=== PATIENT | female | born 1955 | race Caucasian/White ===

== ENCOUNTER → 2017-01-25 | Outpatient (CLI) | payer MEDICARE ==
[2015-09-24 18:04] VITALS: BP 113/74
[~2017-01-25] MED LIST: CLON1TAB PO; HYDR200T5 PO; LEVO100T PO; NAPR500T3 PO; PARO40TA61 PO; TRAM50TA PO; [UNRECOGNIZED DRUG - OTHER]
--- NOTE | 2017-01-25 15:00 | RAD ---
Examination: Ultrasound thyroid History: History of multinodular goiter. Comparison: 01/01/2016 Findings: The right lobe of thyroid measures 5.1 x 2.2 x 1.9 cm. The left lobe of thyroid gland measures 4.7 x 1.8 x1.8 cm There is increased vascular flow identified in the right and left lobes of the thyroid gland. There are multiple hyperechoic nodules identified in the right and left lobes of the thyroid gland and in the isthmus with the largest measuring 1.9 cm in the right lobe. Tiny calcification identified in the left lobe of the thyroid gland measuring 3 mm. Impression: 1. Multinodular goiter with diffuse multiple nodules identified in the thyroid gland with the largest measuring 1.9 cm in the right lobe. The nodules may have slightly increased in size compared to prior exam where the largest in the prior exam measured 1.2 cm. 2. Increased vascular flow identified in the right and left lobes of thyroid gland could be due to thyroiditis or multinodular goiter.
== END | disposition home or self-care (01) ==
LOC: US 13:16
PROVIDERS: ATTEND Internal Medicine Endocrinology, Diabetes & Metabolism
DX: E04.2 Nontoxic multinodular goiter (principal)
CPT/HCPCS: 76536

== ENCOUNTER → 2017-01-25 | Outpatient (CLI) | payer MEDICARE ==
[2015-09-24 18:04] VITALS: BP 113/74
--- NOTE | 2017-01-25 15:04 | RAD ---
DATE: 04/23/2015 EXAM: MAMMO ELISEO SCREENING BILATERAL HISTORY: Routine screening, family history of breast cancer COMPARISON: 04/23/2015 This study was interpreted with the benefit of Computerized Aided Detection (CAD). FINDINGS: Breast Density: SCATTERED The breast parenchyma shows scattered fibroglandular densities. Breast parenchyma level B. There are no dominant suspicious masses, suspicious microcalcifications or evidence of architectural distortion. Benign-appearing calcifications identified in the right breast. IMPRESSION: Benign findings BI-RADS CATEGORY: 2 BENIGN FINDING RECOMMENDED FOLLOW-UP: 12M 12 MONTH FOLLOW-UP PQRS compliance statement: Patient information was entered into a reminder system with a target due date 01/25/2018 for the next mammogram. Mammography is a sensitive method for finding small breast cancers, but it does not detect them all and is not a substitute for careful clinical examination. A negative mammogram does not negate a clinically suspicious finding and should not result in delay in biopsying a clinically suspicious abnormality. "Our facility is accredited by the [employer] Mammography Program."
== END | disposition home or self-care (01) ==
LOC: MAMMO 13:20
PROVIDERS: ATTEND Nurse Practitioner Family
DX: Z12.31 Encounter for screening mammogram for malignant neoplasm of breast (principal)
CPT/HCPCS: 77063; G0202; 77067

== ENCOUNTER → 2017-06-07 | Outpatient (CLI) | payer MEDICARE ==
[2015-09-24 18:04] VITALS: BP 113/74
[~2017-06-07] MED LIST changes: -NAPR500T3 PO; +NAPR500T4 PO
--- NOTE | 2017-06-07 14:19 | RAD ---
Renal ultrasound 06/07/2017 Indication: Acute renal failure Comparison study: None Discussion: Ultrasound evaluation of the kidneys was performed. Static images are submitted to PACS. Findings: Right kidney measures 10 cm in length. Mild renal cortical thinning is seen on the right. No hydronephrosis or nephrolithiasis or focal renal lesion is seen on the right. Blood flow 2. The right kidney is unremarkable and color Doppler imaging. Left kidney measures 10.3 cm in length. Similar to contralateral side there is renal cortical thinning on the left. No focal renal lesion is seen on the left. No hydronephrosis or nephrolithiasis seen. Blood flow to the left kidney is grossly unremarkable color Doppler imaging. The bladder is predominantly decompressed limiting evaluation. Bilateral ureteral jets however are seen. Impression: Mild renal cortical thinning bilaterally. Otherwise unremarkable sonographic appearance of the kidneys.
== END | disposition home or self-care (01) ==
LOC: US 12:59
PROVIDERS: ATTEND Internal Medicine Nephrology
DX: N17.8 Other acute kidney failure (principal); N28.89 Other specified disorders of kidney and ureter
CPT/HCPCS: 76770

== ENCOUNTER → 2017-06-15 | Outpatient (CLI) | payer MEDICARE ==
[2015-09-24 18:04] VITALS: BP 113/74
== END | disposition home or self-care (01) ==
LOC: SPEC 20:26
PROVIDERS: ATTEND Internal Medicine Nephrology
DX: N18.3 Chronic kidney disease, stage 3 (moderate) (principal); N17.8 Other acute kidney failure; N11.9 Chronic tubulo-interstitial nephritis, unspecified; E55.9 Vitamin D deficiency, unspecified; R03.0 Elevated blood-pressure reading, without diagnosis of hypertension; F17.200 Nicotine dependence, unspecified, uncomplicated; Z68.31 Body mass index [BMI] 31.0-31.9, adult
CPT/HCPCS: 36415; 82575

== ENCOUNTER → 2018-02-13 | Outpatient (CLI) | payer MEDICARE ==
[2015-09-24 18:04] VITALS: BP 113/74
[~2018-02-13] MED LIST changes: +NAPR-514 PO; -NAPR500T4 PO
--- NOTE | 2018-02-14 07:58 | RAD ---
Lumbar spine, 5 views, 02/13/2018: HISTORY: Low back pain, back spasms The lumbar vertebral heights are well-maintained. A transitional-type vertebra at the lumbosacral junction will be considered to be a partially lumbarized S1 segment. There is severe disc space narrowing, marginal spurring and vacuum disc phenomena evident at L4-5 and L5-S1. There is mild narrowing of the L3-4 disc space. No fracture or dislocation is identified. There are mild degenerative changes involving facet joints bilaterally in the lower lumbar spine. There is no evidence of spondylolysis. IMPRESSION: 1. Severe degenerative disc disease at L4-5 and L5-S1. 2. No acute bony abnormality is detected. Electronically signed by: Martinez Loera MD (02/14/2018 7:55 AM) [facility]
== END | disposition home or self-care (01) ==
LOC: RAD 17:13
PROVIDERS: ATTEND Physician Assistant Medical
DX: M51.37 Other intervertebral disc degeneration, lumbosacral region (principal); M48.07 Spinal stenosis, lumbosacral region; E55.9 Vitamin D deficiency, unspecified; E03.9 Hypothyroidism, unspecified
CPT/HCPCS: 72110

== ENCOUNTER → 2018-03-28 | Outpatient (CLI) | payer MEDICARE ==
[2015-09-24 18:04] VITALS: BP 113/74
--- NOTE | 2018-03-28 16:20 | RAD ---
EXAM: Thyroid sonogram. HISTORY: Thyroid nodules. TECHNIQUE: Sonographic imaging of the thyroid was performed. COMPARISON: 01/25/2017. FINDINGS: The right thyroid lobe measures 5.3 x 2.0 x 1.8 cm. The left thyroid lobe measures 5.1 x 1.9 x 2.0 cm. The isthmus measures 6.1 mm in thickness. The thyroid parenchyma is diffusely heterogeneous and contains multiple nodules. There is a single calcification within the left thyroid lobe measuring 4 mm. the largest measurable nodule is a heterogeneous hypoechoic nodule within the superior right thyroid lobe measuring 2.0 x 1.2 x 1.2 cm. The second largest nodule is a solid slightly hyperechoic nodule within the mid zone of the right thyroid lobe measuring 1.2 x 0.9 x 0.9 cm. IMPRESSION: 1. Diffusely heterogeneous enlarged thyroid. This can be seen as a sequela of thyroiditis. 2. Multiple thyroid nodules, the largest of which measures 2.0 cm within the superior right thyroid lobe. This is not significantly changed compared to the prior study. The second largest nodule measures 1.2 cm within the right thyroid lobe and is also stable in appearance. Electronically signed by: Yolanda Aguirre MD (03/28/2018 4:17 PM) [facility]
== END | disposition home or self-care (01) ==
LOC: US 14:10
PROVIDERS: ATTEND Internal Medicine Endocrinology, Diabetes & Metabolism
DX: E04.2 Nontoxic multinodular goiter (principal); E04.8 Other specified nontoxic goiter; E55.9 Vitamin D deficiency, unspecified; I12.9 Hypertensive chronic kidney disease with stage 1 through stage 4 chronic kidney disease, or unspecified chronic kidney disease; N18.3 Chronic kidney disease, stage 3 (moderate); D63.1 Anemia in chronic kidney disease; E03.9 Hypothyroidism, unspecified; Z90.49 Acquired absence of other specified parts of digestive tract; Z68.28 Body mass index [BMI] 28.0-28.9, adult
CPT/HCPCS: 76536

== ENCOUNTER → 2018-06-21 | Outpatient (CLI) | payer MEDICARE ==
[2015-09-24 18:04] VITALS: BP 113/74
[2018-06-21 15:12] LABS: HEMATOCRIT 37.1 % (36.0-47.0)
[2018-06-21 15:19] LABS: ALBUMIN 3.5 g/dL (3.4-5.0); CALCIUM 8.1 mg/dL (8.5-10.1); CREATININE 1.4 mg/dL (0.6-1.0); GFR 37.7; MAGNESIUM 2.3 mg/dL (1.8-2.4); PHOSPHORUS 3.6 mg/dL (2.6-4.7); POTASSIUM 4.1 mmol/L (3.5-5.1); URIC ACID 6.2 mg/dL (2.6-6.0)
[2018-06-22 03:12] LABS: CALCIUM PTH 8.7 mg/dL (8.7-10.3); CREATININE PTH 1.31 mg/dL (0.57-1.00); MICRO CREAT RATIO 4.1 mg/g creat (0.0-30.0); MICROALB RD UR 3.1 ug/mL (Not Estab.); PTH INTACT 137 pg/mL (15-65)
== END | disposition home or self-care (01) ==
LOC: LAB 13:33
PROVIDERS: ATTEND Nurse Practitioner Family
DX: I12.9 Hypertensive chronic kidney disease with stage 1 through stage 4 chronic kidney disease, or unspecified chronic kidney disease (principal); N18.3 Chronic kidney disease, stage 3 (moderate); N11.9 Chronic tubulo-interstitial nephritis, unspecified; D63.1 Anemia in chronic kidney disease; N25.81 Secondary hyperparathyroidism of renal origin; E55.9 Vitamin D deficiency, unspecified; Z68.30 Body mass index [BMI] 30.0-30.9, adult
CPT/HCPCS: 36415; 80069; 82043; 82570; 83735; 83970; 84156; 84550; 85014; 85018

== ENCOUNTER → 2018-06-21 | Outpatient (CLI) | payer MEDICARE ==
[2015-09-24 18:04] VITALS: BP 113/74
--- NOTE | 2018-06-21 15:14 | RAD ---
DATE: 06/21/2018 EXAM: MAMMO ELISEO SCREENING BILATERAL HISTORY: Routine screening COMPARISON: 04/23/2015, 01/25/2017 screen mammographic exams This study was interpreted with the benefit of Computerized Aided Detection (CAD). Breast Density: SCATTERED The breast parenchyma shows scattered fibroglandular densities. Breast parenchyma level B. FINDINGS: Parenchymal distribution is stable. Axillary lymph nodes are benign in appearance. Benign-appearing calcifications are present. No distortion. No masses. IMPRESSION: Normal BI-RADS CATEGORY: 2 BENIGN FINDING(S) RECOMMENDED FOLLOW-UP: 12M 12 MONTH FOLLOW-UP PQRS compliance statement: Patient information was entered into a reminder system with a target due date in one year for the next mammogram. Mammography is a sensitive method for finding small breast cancers, but it does not detect them all and is not a substitute for careful clinical examination. A negative mammogram does not negate a clinically suspicious finding and should not result in delay in biopsying a clinically suspicious abnormality. "Our facility is accredited by the [employer] Mammography Program."
== END | disposition home or self-care (01) ==
LOC: MAMMO 13:45
PROVIDERS: ATTEND Physician Assistant Medical
DX: Z12.31 Encounter for screening mammogram for malignant neoplasm of breast (principal)
CPT/HCPCS: 77063; 77067

== ENCOUNTER → 2019-01-19 | Outpatient (CLI) | payer MEDICARE ==
[2015-09-24 18:04] VITALS: BP 113/74
[2019-01-19 15:27] LABS: HEMATOCRIT 38.6 % (36.0-47.0); HEMOGLOBIN 12.5 g/dL (12.0-15.5)
[2019-01-19 15:32] LABS: BILIRUBIN,URINE NEG (NEG); CLARITY,URINE HAZY; COLOR,URINE YELLOW; GLUCOSE,URINE NEG (NEG); NITRITE,URINE NEG (NEG); UROBILINOGEN,URINE 0.2 mg/dL (0.2 mg/dL)
[2019-01-19 15:33] LABS: BACTERIA,URINE FEW /HPF (0-FEW); HYALINE CASTS, URINE OCC /HPF; RBC,URINE OCC /HPF (0-2); SQUAMOUS EPITHELIAL CELL,UR OCC /LPF
[2019-01-19 15:34] LABS: ALBUMIN 3.8 g/dL (3.4-5.0); CALCIUM 9.1 mg/dL (8.5-10.1); CREATININE 1.5 mg/dL (0.6-1.0); GFR 34.9; PHOSPHORUS 3.5 mg/dL (2.6-4.7); URIC ACID 6.5 mg/dL (2.6-6.0)
[2019-01-20 04:06] LABS: CALCIUM PTH 9.2 mg/dL (8.7-10.3); CREATININE PTH 1.43 mg/dL (0.57-1.00); MICRO CREAT RATIO 14.1 mg/g creat (0.0-30.0); MICROALB RD UR 26.4 ug/mL (Not Estab.); PTH INTACT 65 pg/mL (15-65)
== END | disposition home or self-care (01) ==
LOC: LAB 14:27
PROVIDERS: ATTEND Internal Medicine Nephrology
DX: N18.3 Chronic kidney disease, stage 3 (moderate) (principal); N25.81 Secondary hyperparathyroidism of renal origin; D17.9 Benign lipomatous neoplasm, unspecified; I70.1 Atherosclerosis of renal artery; N11.9 Chronic tubulo-interstitial nephritis, unspecified; N26.9 Renal sclerosis, unspecified; D63.1 Anemia in chronic kidney disease; E83.51 Hypocalcemia; Z68.31 Body mass index [BMI] 31.0-31.9, adult
CPT/HCPCS: 36415; 80069; 81001; 82043; 82570; 82607; 82728; 83540; 83550; 83735; 83970; 84550; 85014; 85018; 87086

== ENCOUNTER → 2019-01-19 | Outpatient (CLI) | payer MEDICARE ==
[2015-09-24 18:04] VITALS: BP 113/74
--- NOTE | 2019-01-19 14:51 | RAD ---
Right knee, 3 views, 01/19/2019: HISTORY: Knee pain There is mild spurring medially at the knee joint. No fracture or dislocation is identified. No significant joint effusion is seen. IMPRESSION: No acute right knee abnormality is detected. Electronically signed by: Martinez Loera MD (01/19/2019 2:48 PM) [facility]
== END | disposition home or self-care (01) ==
LOC: RAD 14:18
PROVIDERS: ATTEND Anesthesiology Pain Medicine
DX: M76.891 Other specified enthesopathies of right lower limb, excluding foot (principal)
CPT/HCPCS: 73562

== ENCOUNTER → 2019-02-22 | Outpatient (CLI) | payer MEDICARE ==
[2015-09-24 18:04] VITALS: BP 113/74
--- NOTE | 2019-02-22 14:34 | RAD ---
US SOFT TISSUE HEAD AND NECK CLINICAL INDICATION: Multinodular goiter PROCEDURE: Transverse and longitudinal grayscale and color Doppler images of the thyroid were obtained. COMPARISON: Previous exam from 03/28/2018. FINDINGS: Right: The right thyroid lobe measures 5.6 x 2.1 x 2.0 cm. Isthmus: Measures 8 mm in thickness and is mildly thickened. Left: The left thyroid lobe measures 4.3 x 1.5 by The thyroid gland is heterogenous with numerous nodules. IMPRESSION: Diffusely heterogenous bilateral thyroid lobes with numerous nodules. Overall the appearance is similar to previous exam. Electronically signed by: Karthikeyan Amador DO (02/22/2019 2:31 PM) [facility]
== END | disposition home or self-care (01) ==
LOC: US 12:55
PROVIDERS: ATTEND Internal Medicine Endocrinology, Diabetes & Metabolism
DX: E04.2 Nontoxic multinodular goiter (principal)
CPT/HCPCS: 76536

== ENCOUNTER → 2019-05-02 | Outpatient (CLI) | payer MEDICARE ==
[2015-09-24 18:04] VITALS: BP 113/74
== END | disposition home or self-care (01) ==
LOC: LAB 14:11
PROVIDERS: ATTEND Internal Medicine Endocrinology, Diabetes & Metabolism
DX: E06.3 Autoimmune thyroiditis (principal); E04.2 Nontoxic multinodular goiter
CPT/HCPCS: 84439

== ENCOUNTER → 2019-05-25 | Outpatient (CLI) | payer MEDICARE ==
[2015-09-24 18:04] VITALS: BP 113/74
== END | disposition home or self-care (01) ==
LOC: LAB 14:17
PROVIDERS: ATTEND Internal Medicine Endocrinology, Diabetes & Metabolism
DX: E03.8 Other specified hypothyroidism (principal); E06.3 Autoimmune thyroiditis
CPT/HCPCS: 84443

== ENCOUNTER → 2019-08-07 | Outpatient (CLI) | payer MEDICARE ==
[2015-09-24 18:04] VITALS: BP 113/74
--- NOTE | 2019-08-07 17:12 | RAD ---
DATE: 08/07/2019 EXAM: MAMMO ELISEO SCREENING BILATERAL HISTORY: Routine screening COMPARISON: 04/23/2015 01/25/2017, 06/21/2018 mammographic exams This study was interpreted with the benefit of Computerized Aided Detection (CAD). Breast Density: SCATTERED The breast parenchyma shows scattered fibroglandular densities. Breast parenchyma level B. FINDINGS: No suspicious calcification, mass, or distortion. IMPRESSION: Stable BI-RADS CATEGORY: 1 NEGATIVE RECOMMENDED FOLLOW-UP: 12M 12 MONTH FOLLOW-UP PQRS compliance statement: Patient information was entered into a reminder system with a target due date for the next mammogram. Mammography is a sensitive method for finding small breast cancers, but it does not detect them all and is not a substitute for careful clinical examination. A negative mammogram does not negate a clinically suspicious finding and should not result in delay in biopsying a clinically suspicious abnormality. "Our facility is accredited by the [employer] Mammography Program."
== END | disposition home or self-care (01) ==
LOC: MAMMO 14:35
PROVIDERS: ATTEND Physician Assistant Medical
DX: Z12.31 Encounter for screening mammogram for malignant neoplasm of breast (principal)
CPT/HCPCS: 77063; 77067

== ENCOUNTER → 2019-08-07 | Outpatient (CLI) | payer MEDICARE ==
[2015-09-24 18:04] VITALS: BP 113/74
[2019-08-07 15:40] LABS: ALBUMIN 3.7 g/dL (3.4-5.0); CALCIUM 8.8 mg/dL (8.5-10.1); CREATININE 1.4 mg/dL (0.6-1.0); GFR 37.6; PHOSPHORUS 3.7 mg/dL (2.6-4.7); POTASSIUM 4.3 mmol/L (3.5-5.1); URIC ACID 5.8 mg/dL (2.6-6.0)
[2019-08-07 15:44] LABS: HEMATOCRIT 37.9 % (36.0-47.0); HEMOGLOBIN 12.2 g/dL (12.0-15.5)
[2019-08-07 16:14] LABS: BACTERIA,URINE FEW /HPF (0-FEW); BILIRUBIN,URINE NEG (NEG); CLARITY,URINE HAZY; COLOR,URINE YELLOW; GLUCOSE,URINE NEG (NEG); NITRITE,URINE NEG (NEG); RBC,URINE 0 /HPF (0-2); SQUAMOUS EPITHELIAL CELL,UR OCC /LPF; UROBILINOGEN,URINE 0.2 mg/dL (0.2 mg/dL)
[2019-08-10 12:07] LABS: CALCIUM PTH 9.5 mg/dL (8.7-10.3); CREATININE PTH 1.33 mg/dL (0.57-1.00); PTH INTACT 69 pg/mL (15-65)
== END | disposition home or self-care (01) ==
LOC: LAB 14:27
PROVIDERS: ATTEND Nurse Practitioner Family
DX: I70.1 Atherosclerosis of renal artery (principal); N11.9 Chronic tubulo-interstitial nephritis, unspecified; N26.9 Renal sclerosis, unspecified; N18.3 Chronic kidney disease, stage 3 (moderate); D63.1 Anemia in chronic kidney disease; E83.51 Hypocalcemia; N25.81 Secondary hyperparathyroidism of renal origin; D17.9 Benign lipomatous neoplasm, unspecified; R60.0 Localized edema; Z68.31 Body mass index [BMI] 31.0-31.9, adult
CPT/HCPCS: 36415; 80069; 81001; 83735; 83970; 84550; 85014; 85018; 87086

== ENCOUNTER → 2019-09-28 | Outpatient (CLI) | payer MEDICARE ==
[2015-09-24 18:04] VITALS: BP 113/74
[2019-09-28 15:15] LABS: HEMATOCRIT 37.8 % (36.0-47.0)
[2019-09-28 15:23] LABS: ALBUMIN 3.6 g/dL (3.4-5.0); CALCIUM 8.7 mg/dL (8.5-10.1); CREATININE 1.4 mg/dL (0.6-1.0); GFR 37.6; MAGNESIUM 1.8 mg/dL (1.8-2.4); PHOSPHORUS 3.4 mg/dL (2.6-4.7); POTASSIUM 4.3 mmol/L (3.5-5.1); URIC ACID 6.5 mg/dL (2.6-6.0)
[2019-09-28 15:44] LABS: AMORPHOUS SEDIMENT,UR PRESENT /HPF; BACTERIA,URINE MANY /HPF (0-FEW); BILIRUBIN,URINE NEG (NEG); CLARITY,URINE HAZY; COLOR,URINE YELLOW; GLUCOSE,URINE NEG (NEG); NITRITE,URINE POS (NEG); SQUAMOUS EPITHELIAL CELL,UR FEW /LPF; UROBILINOGEN,URINE 0.2 mg/dL (0.2 mg/dL)
[2019-09-29 15:07] LABS: CALCIUM PTH 9.4 mg/dL (8.7-10.3); CREATININE PTH 1.38 mg/dL (0.57-1.00); PTH INTACT 56 pg/mL (15-65)
== END | disposition home or self-care (01) ==
LOC: LAB 14:10
PROVIDERS: ATTEND Nurse Practitioner Family
DX: I70.1 Atherosclerosis of renal artery (principal); N11.9 Chronic tubulo-interstitial nephritis, unspecified; N26.9 Renal sclerosis, unspecified; N18.3 Chronic kidney disease, stage 3 (moderate); D63.1 Anemia in chronic kidney disease; E83.51 Hypocalcemia; N25.81 Secondary hyperparathyroidism of renal origin; D17.9 Benign lipomatous neoplasm, unspecified; R60.0 Localized edema; Z68.31 Body mass index [BMI] 31.0-31.9, adult
CPT/HCPCS: 36415; 80069; 81001; 83735; 83970; 84550; 85014; 85018; 87086

== ENCOUNTER → 2020-03-27 | Outpatient (CLI) | payer MEDICARE ==
[2015-09-24 18:04] VITALS: BP 113/74
--- NOTE | 2020-03-27 17:29 | RAD ---
EXAM: THYROID ULTRASOUND. HISTORY: Multinodular goiter. COMPARISON: 02/22/2019. FINDINGS: Sonographic evaluation of the thyroid gland was performed and evaluated using ACR TI-RADS criteria. Right lobe: The right lobe measures 5.3 x 2.2 x 2.0 cm. The parenchyma is diffusely replaced by heterogeneous hyperechoic and hypoechoic solid nodules. A previously noted coarse calcification on the right was better seen previously. Left lobe: The left lobe measures 4.6 x 2.1 x 1.5 cm. The parenchyma is diffusely replaced by heterogeneous hyperechoic and hypoechoic solid nodules. Isthmus: The isthmus measures 10 mm. IMPRESSION/RECOMMENDATION: 1. The thyroid parenchyma is diffusely replaced by innumerable mostly hyperechoic nodules. These appear stable and benignity is favored in this setting. Electronically signed by: Eulalia Serna MD (03/27/2020 5:26 PM) [id number]
[2020-03-28 14:27] LABS: FREE T4 1.46 ng/dL (0.76-1.46); THYROID STIM HORMONE (TSH) 0.301 uIU/mL (0.358-3.740)
== END | disposition home or self-care (01) ==
LOC: US 12:48
PROVIDERS: ATTEND Internal Medicine Endocrinology, Diabetes & Metabolism
DX: E04.2 Nontoxic multinodular goiter (principal); E06.3 Autoimmune thyroiditis; E03.8 Other specified hypothyroidism
CPT/HCPCS: 76536; 84439; 84443

== ENCOUNTER → 2020-05-05 | Emergency (ER) | payer MEDICARE ==
[~2020-05-05] VITALS: Ht 170.2 cm; Wt 93.6 kg
[~2020-05-05] MED LIST changes: +ASPIRIN CHEWABLE 81 MG TABLET. PO ONE
[2020-05-05 17:00] VITALS: BP 119/75
--- NOTE | 2020-05-05 17:53 | EKG ---
[address] [address] Test Date: 2020-05-05 Test Time: 17:21:48 Pat Name: LESLEY JO Department: Room: Gender: F Incident Response Engineer: : [id number] Requested By: ILYA DESAI Order Number: [id number] Reading MD: Vincent Gracia MD Measurements Intervals [place] Rate: 68 P: 24 SC: 172 QRS: -6 QRSD: 78 T: 34 QT: 418 QTc: 449 Interpretive Statements SINUS RHYTHM Electronically Signed On 05-06-2020 12:40:42 CDT by Vincent Gracia MD
--- NOTE | 2020-05-05 17:56 | PHYS DOC ---
Past History Past Medical History: Arthritis, Hypothyroid, Renal Disease, Renal Failure, Other Past Surgical History: Cholecystectomy, Hysterectomy, Tonsillectomy Alcohol Use: None Drug Use: None General Adult EDM: Chief Complaint: CHEST PAIN HPI: HPI: 65-year-old female presents with chest pain. The pain started while she was lyi ng in bed this morning. It has been pretty consistent all day. It is moderate in intensity. She describes it as a tightness. The patient recently had some wisdom teeth extracted and is on pain medication. She did not take any pain medication today until about an hour prior to arrival. The patient does not have a cardiac history. She denies shortness of breath or diaphoresis. She had a COVID test earlier today but the results are not back. Patient has been really tired all day but she assumes is due to the discomfort from her dental surgery. She has not had a stress test in several years. She has never had a cardiac cath. She denies fever or chills. She has no other complaints at this time. Review of Systems: Review of Systems: Constitutional: Fatigue. Denies fever or chills Eyes: Denies change in visual acuity HENT: Denies nasal congestion or sore throat Respiratory: Denies cough or shortness of breath Cardiovascular: Chest pain GI: Denies abdominal pain, nausea, vomiting, bloody stools or diarrhea : Denies dysuria Musculoskeletal: Denies back pain or joint pain Integument: Denies rash Neurologic: Denies headache, focal weakness or sensory changes Endocrine: Denies polyuria or polydipsia Lymphatic: Denies swollen glands Psychiatric: Denies depression or anxiety Heart Score: HEART Score for Chest Pain: HEART Score for Chest Pain Response (Comments) Value History Slighlty/Non-Suspicious 0 ECG Normal 0 Age > 65 2 Risk Factors 1 or 2 Risk Factors 1 Troponin < Normal Limit 0 Total 3 Risk Factors: Risk Factors: DM, Current or recent (<one month) smoker, HTN, HLP, family hi story of CAD, obesity. Risk Scores: Score 0 - 3: 2.5% MACE over next 6 weeks - Discharge Home Score 4 - 6: 20.3% MACE over next 6 weeks - Admit for Clinical Observation Score 7 - 10: 72.7% MACE over next 6 weeks - Early Invasive Strategies Current Medications: Current Meds: Current Medications Medications (Trade) Dose Ordered Sig/Michelle Start Time Stop Time Status Last Admin Dose Admin Aspirin (Aspirin Chewable) 324 mg 1X ONCE 05/05/20 17:45 05/05/20 17:48 DC Allergies: Allergies: Allergies Coded Allergies Type Severity Reaction Last Updated Verified hydroxychloroquine Adverse Reaction Mild RASH 09/24/15 Yes Physical Exam: PE: Constitutional: Well developed, well nourished, no acute distress, non-toxic appearance. [] HENT: Normocephalic, atraumatic, bilateral external ears normal, oropharynx moist, no oral exudates, nose normal. [] Eyes: PERRLA, EOMI, conjunctiva normal, no discharge. [] Neck: Normal range of motion, no tenderness, supple, no stridor. [] Cardiovascular: Heart rate regular rhythm, no murmur [] Lungs & Thorax: Bilateral breath sounds clear to auscultation [] Abdomen: Bowel sounds normal, soft, no tenderness, no masses, no pulsatile masses. [] Skin: Warm, dry, no erythema, no rash. [] Back: No tenderness, no CVA tenderness. [] Extremities: No tenderness, no cyanosis, no clubbing, ROM intact, no edema. [] Neurologic: Alert and oriented X 3, normal motor function, normal sensory function, no focal deficits noted. [] Psychologic: Affect normal, judgement normal, mood normal. [] Current Patient Data: Vital Signs: Vital Signs Date Time Temp Pulse Resp B/P (MAP) Pulse Ox O2 Delivery O2 Flow Rate FiO2 05/05/20 17:00 98.1 70 18 119/75 (90) 96 Room Air EKG: EKG: Sinus rhythm, rate 68, leftward axis, no ST elevations or depressions. [] Radiology/Procedures: Radiology/Procedures: [] Course & Med Decision Making: Course & Med Decision Making Pertinent Labs and Imaging studies reviewed. (See chart for details) The patient's labs are unremarkable. Her troponin is negative. She does have an elevated creatinine, but this is consistent with previous labs. Chest x-ray is negative for acute findings. Patient's heart score is a 3. This does not appear to be cardiopulmonary in nature. I believe the patient can be discharged at this time. She will follow-up with her PCP. [] Carlos A Disclaimer: Carlos A Disclaimer: This electronic medical record was generated, in whole or in part, using a voice recognition dictation system. Departure Departure: Impression: Primary Impression: Chest pain Qualified Codes: R07.2 - Precordial pain Disposition: 01 HOME/RESIDENCE PRIOR TO ADM Condition: STABLE Referrals: DENISA SAXENA (PCP) Patient Instructions: Chest Pain (Nonspecific), [id number] Justification of Admission: Justification of Admission: Justification of Admission Dx: N/A ILYA DESAI DO May 05, 2020 17:56
[2020-05-05 18:04] LABS: BASO % 1 % (0-3); EOS # 0.1 x10^3/uL (0.0-0.7); EOS % 2 % (0-3); HEMATOCRIT 39.3 % (36.0-47.0); HEMOGLOBIN 12.8 g/dL (12.0-15.5); LYMPH # 1.6 x10^3/uL (1.0-4.8); LYMPH % 30 % (24-48); MEAN CORPUSCULAR HEMOGLOBIN 30 pg (25-35); MEAN CORPUSCULAR HGB CONC 33 g/dL (31-37); MEAN CORPUSCULAR VOLUME 91 fL (79-100); MONO # 0.6 x10^3/uL (0.0-1.1); MONO % 11 % (0-9); NEUT # 3.1 x10^3uL (1.8-7.7); NEUT % 57 % (31-73); PLATELET COUNT 269 x10^3/uL (140-400); RED BLOOD COUNT 4.31 x10^6/uL (3.50-5.40); WHITE BLOOD COUNT 5.4 x10^3/uL (4.0-11.0)
[2020-05-05 18:06] LABS: CALCIUM 8.7 mg/dL (8.5-10.1); CREATININE 1.6 mg/dL (0.6-1.0); GFR 32.2; POTASSIUM 3.8 mmol/L (3.5-5.1)
[2020-05-05 18:11] LABS: ALBUMIN 3.4 g/dL (3.4-5.0); ALBUMIN/GLOBULIN RATIO 0.9 (1.0-1.7); TOTAL BILIRUBIN 0.4 mg/dL (0.2-1.0)
--- NOTE | 2020-05-05 18:30 | RAD ---
INDICATION: Reason: CHEST PAIN / Spl. Instructions: / History: COMPARISON: February 2018 FINDINGS: Single view of chest obtained. Cardiac silhouette is similar to prior with some tortuosity of the aortic contour again seen. No definite new region of focal airspace consolidation or pulmonary edema. IMPRESSION: * No focal airspace consolidation. Electronically signed by: Ben Haley MD (05/05/2020 6:27 PM) [id number]
== END | disposition home or self-care (01) ==
LOC: ER 16:56
DX: R07.2 Precordial pain (principal); M19.90 Unspecified osteoarthritis, unspecified site; E03.9 Hypothyroidism, unspecified; N19 Unspecified kidney failure; Z88.8 Allergy status to other drugs, medicaments and biological substances
CPT/HCPCS: 36415; 71045; 80053; 84484; 85025; 93005; 99285

== ENCOUNTER 2020-05-31 14:08 | Emergency (ER) | payer MEDICARE ==
[~2020-05-31] VITALS: Ht 170.2 cm; Wt 82.0 kg
[~2020-05-31 14:08] MED LIST changes: -ASPIRIN CHEWABLE 81 MG TABLET. PO ONE
[2020-05-31 14:20] VITALS: BP 119/16
[2020-05-31] MEDS ORDERED: AMOX1TAB61 PO (14:50)
--- NOTE | 2020-05-31 14:50 | PHYS DOC ---
Past History Past Medical History: Arthritis, Hypothyroid, Renal Disease, Renal Failure, Other Past Surgical History: Cholecystectomy, Hysterectomy, Tonsillectomy Alcohol Use: None Drug Use: None Adult General Chief Complaint Chief Complaint: ANIMAL BITE HPI HPI Patient is a 65-year-old female who presents for cat bite complications. Cat bite occurred yesterday. Cat is known to patient, patient aware of all vaccination history, no rabies etc. Patient deals with animals frequently and tried to provide self-care for herself at home consisting of warm soaks, hydrogen peroxide scrubs, and as needed pain control. Patient outlined initial area of erythema on left hand but this increased in size with soft tissue swelling prompting her to seek care at our ER for evaluation. She has not had any fever or streaking, no crepitus, no changes in motor or sensory sensation in left upper extremity Review of Systems Review of Systems Fourteen body systems of review of systems have been reviewed. See HPI for pertinent positives and negative responses, other alanis all other systems are negative, non-pertinent or non-contributory Allergies Allergies Allergies Coded Allergies Type Severity Reaction Last Updated Verified hydroxychloroquine Adverse Reaction Mild RASH 05/31/20 Yes Physical Exam Physical Exam Constitutional: Well developed, well nourished, no acute distress, non-toxic appearance. HENT: Normocephalic, atraumatic, bilateral external ears normal, oropharynx moist, no oral exudates, nose normal. Eyes: PERRLA, EOMI, conjunctiva normal, no discharge. Neck: Normal range of motion, no tenderness, supple, no stridor. Cardiovascular: Heart rate regular, sinus rhythm, no murmurs rubs or gallops Lungs & Thorax: Bilateral breath sounds clear to auscultation Abdomen: Bowel sounds normal, soft, no tenderness, no masses, no pulsatile masses. Nonsurgical abdomen, no peritoneal signs Skin: Warm, dry, no rash. Soft tissue edema and erythema over second and third digit of left hand over primary inoculation site on second knuckle. Erythema has increased with diameter greater than 4 cm from bite suraj, no crepitus or streaking at present, no subcutaneous fluid collection or mobile masses or retained foreign bodies Back: No tenderness, no CVA tenderness. Extremities: No tenderness, no cyanosis, no clubbing, ROM intact. Neurologic: Alert and oriented X 3, medial ulnar and dorsal nerves of left upper extremity intact, normal motor & sensory function, no focal deficits noted. Psychologic: Affect normal, judgement normal, mood normal. Current Patient Data Vital Signs Vital Signs Date Time Temp Pulse Resp B/P (MAP) Pulse Ox O2 Delivery O2 Flow Rate FiO2 05/31/20 14:20 97.7 72 16 119/16 (50) 98 EKG EKG [] Radiology/Procedures Radiology/Procedures [] Heart Score Risk Factors: Risk Factors: DM, Current or recent (<one month) smoker, HTN, HLP, family history of CAD, obesity. Risk Scores: Risk Factors: DM, Current or recent (<one month) smoker, HTN, HLP, family history of CAD, obesity. Course & Med Decision Making Course & Med Decision Making Pertinent Labs and Imaging studies reviewed. (See chart for details) Discussed most likely diagnosis of complicated cat bite Discussed need for antibiotic use, I advised patient on likely course of recovery involving Augmentin use and continued wound care. I did disclose this might be an acute presentation more concerning pathology and if her condition continues to worsen there might be a role for IV antibiotics and potential admission. Strict return precautions were discussed with patient with good understanding, all questions and concerns addressed prior to ER departure home in stable condition with Augmentin prescription and extremely close follow-up with primary care physician in upcoming 48 to 72 hours for repeat examination Dragon Disclaimer Dragon Disclaimer This electronic medical record was generated, in whole or in part, using a voice recognition dictation system. Departure Departure: Impression: Primary Impression: Cat bite of hand Disposition: 01 DC HOME SELF CARE/HOMELESS Condition: STABLE Referrals: DENISA ASXENA (PCP) Patient Instructions: Amoxicillin; Clavulanic Acid tablets, Animal Bite Additional Instructions: As discussed prior to ER departure, please call your primary care physician first thing Tuesday morning to schedule follow-up in wound examination Please take prescribed antibiotics as indicated to completion As indicated, you are at high risk for worsened disease potentially requiring IV antibiotics. If any redness, streaking, fever or other concerning signs or symptoms present prior to outpatient follow-up please do not hesitate to come back for repeat evaluation Is a pleasure to take care of you this evening and I wish you a speedy recovery Scripts Amoxicillin/Potassium Clav (AUGMENTIN 875-125 TABLET) 1 Each Tablet 1 TAB PO BID for CAT BITE for 7 Days, #13 TAB 0 Refills Prov: IZABEL VARGAS DO 05/31/20 IZABEL VARGAS DO May 31, 2020 14:50
[2020-05-31] MEDS ORDERED: AMOXICILLIN/K CLAV 875/125MG TABLET. PO ONE (15:00)
== END 2020-05-31 15:05 | disposition home or self-care (01) ==
LOC: ER 14:08
DX: S60.572A Other superficial bite of hand of left hand, initial encounter (principal); M19.90 Unspecified osteoarthritis, unspecified site; E03.9 Hypothyroidism, unspecified; N18.9 Chronic kidney disease, unspecified; Z90.49 Acquired absence of other specified parts of digestive tract; Z90.710 Acquired absence of both cervix and uterus; Z90.89 Acquired absence of other organs; Z98.890 Other specified postprocedural states; W55.01XA Bitten by cat, initial encounter; Y93.89 Activity, other specified; Y92.89 Other specified places as the place of occurrence of the external cause; Y99.8 Other external cause status
CPT/HCPCS: 99283

== ENCOUNTER → 2020-09-12 | Outpatient (CLI) | payer MEDICARE ==
[~2020-09-12] MED LIST changes: +AMOX1TAB61 PO
--- NOTE | 2020-09-12 17:34 | RAD ---
XR HIP (WITH OR WITHOUT PELVIS) 1 VIEW 09/12/2020 10:33 AM INDICATION: Bilateral hip pain COMPARISON: None available. TECHNIQUE: AP view the pelvis and 2 dedicated views of each hip are provided. FINDINGS/ IMPRESSION: There is no acute fracture or dislocation. Joint spaces are maintained. Bone mineralization is within normal limits. Regional soft tissues are within normal limits. There is no soft tissue gas or osseou s erosion. No radiopaque foreign body. Moderate degenerative disc disease identified at L4-L5 with le ft lateral listhesis of L4 on L5. Electronically signed by: Macie Adams MD (09/12/2020 5:31 PM) [email or web address]
== END ==
LOC: RAD 10:14
PROVIDERS: ATTEND Physician Assistant
DX: M25.551 Pain in right hip (principal); M25.552 Pain in left hip
CPT/HCPCS: 73521

== ENCOUNTER → 2020-09-12 | Outpatient (CLI) | payer MEDICARE ==
--- NOTE | 2020-09-15 10:19 | RAD ---
DATE: 09/12/2020 10:56 AM EXAM: MAMMO ELISEO SCREENING BILATERAL HISTORY: Screening COMPARISON: 08/07/2019 Bilateral CC and MLO views of the breasts were performed. Bilateral breast tomosynthesis was performed in CC and MLO projections. This study was interpreted with the benefit of Computerized Aided Detection (CAD). FINDINGS: Breast Density: FATTY The Breast Parenchyma is primarily fatty replaced. Breast parenchyma level density A. No suspicious masses, microcalcifications or architectural distortion is present to suggest malignancy in either breast. The visualized axillae are unremarkable. IMPRESSION: No mammographic evidence of malignancy. BI-RADS CATEGORY: 1 NEGATIVE RECOMMENDED FOLLOW-UP: 12M 12 MONTH FOLLOW-UP Annual screening mammography is recommended, unless clinically indicated sooner based on symptoms or change in physical exam. PQRS compliance statement: Patient information was entered into a reminder system with a target due date for the next mammogram. Mammography is a sensitive method for finding small breast cancers, but it does not detect them all and is not a substitute for careful clinical examination. A negative mammogram does not negate a clinically suspicious finding and should not result in delay in biopsying a clinically suspicious abnormality. "Our facility is accredited by the [employer] Mammography Program."
== END ==
LOC: MAMMO 10:35
PROVIDERS: ATTEND Physician Assistant Medical
DX: Z12.31 Encounter for screening mammogram for malignant neoplasm of breast (principal)
CPT/HCPCS: 77063; 77067

== ENCOUNTER → 2021-01-22 | Outpatient (CLI) | payer MEDICARE ==
--- NOTE | 2021-01-22 15:27 | RAD ---
US THYROID History: Reason: CHRONIC THYROIDITIS / Spl. Instructions: / History: Comparison: March 27, 2020 Technique: Multiple grayscale and color Doppler images of the thyroid gland were obtained. Findings: Right thyroid lobe: 4.9 x 2.2 x 2.4 cm. Heterogeneous echotexture. Increased vascularity. Left thyroid lobe: 4.7 x 1.7 x 1.9 cm. Heterogeneous echotexture. Increased vascularity Isthmus: 1.0 cm. Diffuse heterogeneous appearance of the thyroid with innumerable hyperechoic nodules, overall similar compared to prior. No calcification. IMPRESSION: 1. Unchanged diffusely heterogeneous nodular hypervascular thyroid, compatible with known thyroiditi s. Electronically signed by: Jason Saavedra DO (01/22/2021 3:25 PM) [id number]
== END ==
LOC: US 09:37
PROVIDERS: ATTEND Internal Medicine Endocrinology, Diabetes & Metabolism
DX: E06.5 Other chronic thyroiditis (principal); E06.3 Autoimmune thyroiditis; E04.1 Nontoxic single thyroid nodule
CPT/HCPCS: 76536

== ENCOUNTER → 2021-04-30 | Outpatient (CLI) | payer MEDICARE ==
[2021-04-30 15:07] LABS: HEMATOCRIT 40.9 % (36.0-47.0); HEMOGLOBIN 13.4 g/dL (12.0-15.5)
[2021-04-30 15:19] LABS: ALBUMIN 3.5 g/dL (3.4-5.0); CALCIUM 8.5 mg/dL (8.5-10.1); CREATININE 1.3 mg/dL (0.6-1.0); GFR 40.7; POTASSIUM 3.7 mmol/L (3.5-5.1)
[2021-05-01 12:07] LABS: PTH INTACT 59 pg/mL (15-65)
== END ==
LOC: LAB 14:12
PROVIDERS: ATTEND Nurse Practitioner Adult Health
DX: I70.1 Atherosclerosis of renal artery (principal); N11.9 Chronic tubulo-interstitial nephritis, unspecified; N26.9 Renal sclerosis, unspecified; N18.32 Chronic kidney disease, stage 3b; D63.1 Anemia in chronic kidney disease; E83.51 Hypocalcemia; N25.81 Secondary hyperparathyroidism of renal origin; D17.9 Benign lipomatous neoplasm, unspecified; R60.0 Localized edema; Z68.34 Body mass index [BMI] 34.0-34.9, adult
CPT/HCPCS: 36415; 80069; 83970; 85014; 85018

== ENCOUNTER → 2021-08-27 | Outpatient (CLI) | payer MEDICARE ==
--- NOTE | 2021-08-28 00:44 | RAD ---
Two-view chest dated 08/28/2021 12:41 AM Comparison: None CLINICAL INDICATION: Shortness of breath FINDINGS: PA and lateral views obtained. Heart and mediastinal contours within normal limits. Lungs are clear. No consolidation or pleural effusion. No pneumothorax. There are a few scattered calcified granuloma. IMPRESSION: No acute radiographic abnormality. Electronically signed by: Lionel Vargas MD (08/28/2021 12:42 AM) [facility]
== END ==
LOC: RAD 17:47
PROVIDERS: ATTEND Nurse Practitioner
DX: J84.10 Pulmonary fibrosis, unspecified (principal); R06.02 Shortness of breath
CPT/HCPCS: 71046

== ENCOUNTER → 2021-11-10 | Outpatient (CLI) | payer MEDICARE ==
[2021-11-10 13:35] LABS: ALBUMIN 3.4 g/dL (3.4-5.0); CALCIUM 8.7 mg/dL (8.5-10.1); CREATININE 1.5 mg/dL (0.6-1.0); GFR 34.5; PHOSPHORUS 3.9 mg/dL (2.6-4.7); POTASSIUM 3.6 mmol/L (3.5-5.1)
[2021-11-11 11:09] LABS: CALCIUM PTH 9.2 mg/dL (8.7-10.3); CREATININE PTH 1.52 mg/dL (0.57-1.00); PTH INTACT 60 pg/mL (15-65)
[2021-11-13 15:32] LABS: CREATININE,RANDOM URINE 60.8 mg/dL (Not Establ.)
== END ==
LOC: LAB 12:36
PROVIDERS: ATTEND Nurse Practitioner Adult Health
DX: I70.1 Atherosclerosis of renal artery (principal); N11.9 Chronic tubulo-interstitial nephritis, unspecified; N26.9 Renal sclerosis, unspecified; N18.32 Chronic kidney disease, stage 3b; D63.1 Anemia in chronic kidney disease; E83.51 Hypocalcemia; N25.81 Secondary hyperparathyroidism of renal origin; D17.9 Benign lipomatous neoplasm, unspecified; R60.0 Localized edema; Z68.33 Body mass index [BMI] 33.0-33.9, adult
CPT/HCPCS: 36415; 80069; 82043; 82570; 83970; 84156